=== PATIENT | female | born 1990 | race Native Hawaiian/Other Pacific Islander ===

== ENCOUNTER 2016-09-17 18:14 | Emergency (ER) | payer OTHER ==
[2016-09-17 18:23] VITALS: BP 109/73; PULSE 67; RESP 18; TEMP 98.2; O2SAT 99
--- NOTE | 2016-09-17 18:47 | ED PDOC ---
HPI: Abdomen Time Seen by Provider: 09/17/16 18:26 Chief Complaint (Nursing): Abdominal Pain Chief Complaint (Provider): Suprapubic abdominal pain x 2 hours History Per: Patient History/Exam Limitations: no limitations Onset/Duration Of Symptoms: Hrs (2) Outside of [place] travel?: No Current Symptoms Are (Timing): Still Present Additional Complaint(s): Pt sates 6 weeks ago she had a spontaneous miscarriage. Pt states she had a follow-up with her COURT MONITOR 2 weeks ago and he did an US which was normal. PT reports having suprapubic pain for 2 days and some blood in urine yesterday. Pt reports more blood today. Past Medical History Reviewed: Historical Data, Nursing Documentation, Vital Signs Vital Signs: Last Vital Signs Temp 98.2 F 09/17/16 18:18 Pulse 67 09/17/16 20:31 Resp 18 09/17/16 18:18 BP 109/73 09/17/16 18:18 Pulse Ox 99 09/17/16 20:31 - Medical History PMH: No Chronic Diseases - Surgical History Surgical History: No Surg Hx - Family History Family History: States: Unknown Family Hx - Social History Current smoker - smoking cessation education provided: No Alcohol: None Drugs: Denies - Home Medications Home Medications: Ambulatory Orders Medication Instructions Recorded Ciprofloxacin [Cipro] 500 mg PO BID #10 tab 09/17/16 - Allergies Allergies/Adverse Reactions: Allergies Allergy/AdvReac Type Severity Reaction Status Date / Time No Known Allergies Allergy Verified 09/17/16 18:18 Review of Systems ROS Statement: Except As Marked, All Systems Reviewed And Found Negative Gastrointestinal: Positive for: Abdominal Pain. Negative for: Vomiting, Diarrhea Genitourinary Female: Positive for: Dysuria, Vaginal Bleeding (spotting) Physical Exam - Reviewed Nursing Documentation Reviewed: Yes Vital Signs Reviewed: Yes - Physical Exam Appears: Positive for: Non-toxic, No Acute Distress Head Exam: Positive for: ATRAUMATIC, NORMOCEPHALIC Skin: Positive for: Normal Color, Warm, Dry Cardiovascular/Chest: Positive for: Regular Rate, Rhythm. Negative for: Murmur Respiratory: Positive for: Normal Breath Sounds. Negative for: Accessory Muscle Use, Respiratory Distress Gastrointestinal/Abdominal: Positive for: Soft, Tenderness (Suprapubic tenderness) Extremity: Positive for: Normal ROM. Negative for: Pedal Edema Neurologic/Psych: Positive for: Alert, Oriented - Laboratory Results Result Diagrams: 09/17/16 19:22 09/17/16 19:22 - ECG O2 Sat by Pulse Oximetry: 99 (RA) Pulse Ox Interpretation: Normal Medical Decision Making Medical Decision Making: Time: 18:26 Initial Impression: Abdominal Pain Initial Plan: --ED urine dipstick (POC) --ED Urine (POC) --Revaluation Time: 20:16 Upon provider reevaluation patient is medically stable, and requires no further treatment in the ED at this time. Patient will be discharged home with Rx for Cipro 500 mg. Counseling was provided and all questions were answered regarding diagnosis and need for follow up with referred clinics. There is agreement to discharge plan. Return if symptoms persist or worsen. Clinical Impression: Urinary Tract Infection Scribe Attestation: Documented by Nicole Joya, acting as a scribe for Nohelia Landry PA-C. Provider Scribe Attestation: All medical record entries made by the Scribe were at my direction and personally dictated by me. I have reviewed the chart and agree that the record accurately reflects my personal performance of the history, physical exam, medical decision making, and the department course for this patient. I have also personally directed, reviewed, and agree with the discharge instructions and disposition. Disposition - Clinical Impression Clinical Impression: UTI (urinary tract infection) - Patient ED Disposition Is Patient to be Admitted: No Counseled Patient/Family Regarding: Diagnosis, Need For Followup, Rx Given - Disposition Referrals: [facility] [Outside] Disposition: Routine/Home Disposition Time: 20:16 Condition: GOOD Prescriptions: Ciprofloxacin [Cipro] 500 mg PO BID #10 tab Instructions: Urinary Tract Infection in Women (ED)
[2016-09-17] MEDS ORDERED: Sodium Chloride 0.9% 1,000 ML IV STA (18:48)
[2016-09-17] MEDS ORDERED: cefTRIAXone (Rocephin) 1 gm Inj ONE (19:15)
[2016-09-17 19:29] LABS: BASO % 0.3 % (0.0-2.0); EOS % 10.5 % (0.0-4.0); HEMATOCRIT 42.4 % (34.0-47.0); LYMPH # 1.7 K/uL (1.0-4.3); LYMPH % 17.7 % (20.0-40.0); MEAN CELL VOLUME 93.4 fl (81.0-99.0); MEAN CORPUSCULAR HEMOGLOBIN 31.4 pg (27.0-31.0); MEAN CORPUSCULAR HGB CONC 33.6 g/dL (33.0-37.0); MEAN PLATELET VOLUME 9.2 fl (7.2-11.7); MONO # 0.7 K/uL (0.0-0.8); MONO % 7.7 % (0.0-10.0); NEUT # 6.1 K/uL (1.8-7.0); NEUT % 63.8 % (50.0-75.0); NRBC % 0.1 % (0.0-0.0); RED CELL DISTRIBUTION WIDTH 13.4 % (11.5-14.5); WHITE BLOOD COUNT 9.6 K/uL (4.8-10.8)
[2016-09-17 19:41] LABS: ALB/GLOB RATIO 1.6 (1.0-2.1); ALKALINE PHOSPHATASE 76 U/L (38-126); ALT/SGPT 22 U/L (9-52); AST/SGOT 24 U/L (14-36); BILIRUBIN,TOTAL 0.4 mg/dl (0.2-1.3); BLOOD UREA NITROGEN 10 mg/dl (7-17); CALCIUM 10.1 mg/dL (8.4-10.2); CARBON DIOXIDE 25 mmol/L (22-30); CHLORIDE 103 mmol/L (98-107); GFR AFRICAN-AMERICAN > 60; GLUCOSE,RANDOM 109 mg/dL (65-105); POTASSIUM 3.8 MMOL/L (3.6-5.0); SODIUM 140 mmol/l (132-148); TOTAL PROTEIN 8.1 G/DL (6.3-8.2)
== END 2016-09-17 20:30 | disposition home or self-care (01) ==
LOC: H.ER 18:14
DX: N39.0 Urinary tract infection, site not specified (principal)